=== PATIENT | female | born 1980 | race Caucasian/White ===

== ENCOUNTER 2018-01-05 11:38 | Inpatient (IN) | payer OTHER ==
[~2018-01-05] VITALS: Ht 170.2 cm; Wt 90.5 kg
[~2018-01-05 11:38] MED LIST: ATARAX,VISTARIL25 MG PO; BENZOYL PEROXIDE TP; CLEOCIN150 MG PO; CLINDAMYCIN TP; DIVALPROEX SOD500 MG PO; DOXYCYCLINE HY100 MG PO; FLUVOXAMINE MA100 MG PO; GLIPIZIDE5 MG PO; JANUVIA100 MG PO; LATUDA40 MG PO; METFORMIN HCL500 MG PO; PREDNISONE10 M1 PO
[2018-01-05 13:05] LABS: BASOPHIL (%) 0.6 % (0-1); EOSINOPHIL (%) 1.8 % (0-5); EOSINOPHIL COUNT 0.1 K/uL (0-0.3); HEMATOCRIT 35.1 % (36.0-46.0); HEMOGLOBIN 11.6 G/DL (11.9-15.5); IMMATURE GRANULOCYTE (%) 0.4 % (0.0-0.7); LYMPHOCYTE (%) 36.7 % (15-42); LYMPHOCYTE COUNT 2.7 K/uL (1.0-2.8); MCH 28.1 PG (29.0-34.0); MONOCYTE (%) 8.6 % (3-12); MONOCYTE COUNT 0.6 K/uL (0-0.8); NEUTROPHIL (%) 51.9 % (45-76); NEUTROPHIL COUNT 3.8 K/uL (1.8-6.4); PLATELET COUNT 210 K/uL (156-360); RBC DIS.WIDTH-CV 14.3 % (11.8-14.6); RED BLOOD COUNT 4.13 M/uL (3.80-5.20); WHITE BLOOD COUNT 7.3 K/uL (4.1-10.2)
[2018-01-05 13:18] LABS: CHLORIDE 108 mEq/L (99-109); POTASSIUM 4.2 mEq/L (3.7-5.4); SODIUM 140 mEq/L (136-147)
[2018-01-05 13:20] LABS: GLUCOSE 154 mg/dL (70-99)
[2018-01-05 13:23] LABS: SERUM ETHYL ALCOHOL < 10 mg/dL
[2018-01-05 13:24] LABS: CREATININE 0.7 mg/dL (0.6-1.3); GFR ESTIMATE (CALCULATED) > 59 mL/min/
[2018-01-05 13:25] LABS: UREA NITROGEN (BUN) 9 mg/dL (9-23)
[2018-01-05 13:35] LABS: QUANTITATIVE HCG < 4.0 MIU/ML
[2018-01-05 14:20] LABS: APPEARANCE CLOUDY ((CLEAR)); BILIRUBIN NEGATIVE; BLOOD NEGATIVE; COLOR YELLOW ((YELLOW)); GLUCOSE (STRIP) NEGATIVE; KETONES 5; LEUKOCYTES NEGATIVE; NITRITE NEGATIVE; PROTEIN (STRIP) NEGATIVE; UROBILINOGEN 0.2 MG/DL (0.2-1.0)
[2018-01-05 14:33] LABS: AMPHETAMINE NEGATIVE (500 ng/mL); BARBITURATES NEGATIVE (200 ng/mL); BENZODIAZEPINES NEGATIVE (150 ng/mL); BUPRENORPHINE NEGATIVE (10 ng/mL); COCAINE NEGATIVE (150 ng/mL); METHADONE NEGATIVE (200 ng/mL); METHAMPHETAMINE NEGATIVE (500 ng/mL); OPIATES (MORPHINE) NEGATIVE (100 ng/mL); OXYCODONE NEGATIVE (100 ng/mL); PHENCYCLIDINE NEGATIVE (25 ng/mL); PROPOXYPHENE NEGATIVE (300 ng/mL); THC CANNABINOIDS NEGATIVE (50 ng/mL); TRICYCLIC ANTIDEPRESSANTS NEGATIVE (300 ng/mL)
[2018-01-05 14:40] LABS: BACTERIA 2+ /HPF; EPITHELIAL CELLS 1+ /HPF; MUCUS NONE SEEN /LPF; RED BLOOD CELLS 0-5 /HPF (0-5); WHITE BLOOD CELLS 0-5 /HPF (0-5)
[2018-01-05 17:30] VITALS: BP 140/60
[2018-01-05] MEDS ORDERED: LEXAPRO20 MG PO (18:26)
[2018-01-05] MEDS ORDERED: GLUCOPHAGE500 MG PO (18:27)
[2018-01-06 08:03] VITALS: BP 109/72
[2018-01-06 16:12] VITALS: BP 119/56
[2018-01-07 08:19] VITALS: BP 113/56
[2018-01-07] MEDS ORDERED: TOPAMAX100 MG PO (09:29)
[2018-01-07] MEDS ORDERED: VITAMIN D2000 UNI1 PO (09:30)
[2018-01-07] MEDS ORDERED: BYDUREON2 MG SC (09:30)
[2018-01-07 16:55] VITALS: BP 111/53
[2018-01-08 07:42] VITALS: BP 119/56
[2018-01-08 16:28] VITALS: BP 103/50
[2018-01-09 07:45] VITALS: BP 110/58
[2018-01-09 15:26] VITALS: BP 99/69
[2018-01-10 07:49] VITALS: BP 110/55
[2018-01-10 15:32] VITALS: BP 110/56
[2018-01-11 07:50] VITALS: BP 128/60
[2018-01-11] MEDS ORDERED: TOPIRAMATE25 MG PO (11:15)
[2018-01-11] MEDS ORDERED: RISPERDAL2 MG PO (11:15)
[2018-01-11] MEDS ORDERED: SERTRALINE HCL100 MG PO (11:15)
== END 2018-01-11 14:49 | disposition home or self-care (01) | DRG 885 ==
LOC: EME 11:38 → 1WEST 14:02 → EDOF 14:02 → ENRESERV 17:19 → 1WEST 17:20
PROVIDERS: Emergency Medicine; Psychiatry & Neurology Psychiatry
DX: F31.4 Bipolar disorder, current episode depressed, severe, without psychotic features (principal); R45.851 Suicidal ideations; F70 Mild intellectual disabilities; E11.9 Type 2 diabetes mellitus without complications; E66.3 Overweight; Z68.32 Body mass index [BMI] 32.0-32.9, adult
CPT/HCPCS: 80048; 80164; 81003; 82948; 84702; 85025; 90839; 97150 GO; 97166 GO; 99281; 99285; G0480; Q0177